=== PATIENT | female | born 1955 | race Caucasian/White ===

== ENCOUNTER 2018-12-08 15:56 | Emergency (ER) | payer BC, OTHER ==
[2018-12-08] MEDS ORDERED: ONDANSETRON 4 MG/2 ML VIAL ONE (16:52)
[2018-12-08] MEDS ORDERED: MORPHINE 2 MG/ML SYR ONE (16:52)
[2018-12-08] MEDS ORDERED: NA CHLORIDE 0.9% 500 ML ONE ×2 (16:52→18:22)
[2018-12-08] MEDS ORDERED: FAMOTIDINE 20 MG/2 ML VIAL IV ONE (16:53)
[2018-12-08 17:09] LABS: Urine Blood 1+ (NEG); Urine Glucose NEGATIVE (NEG); Urine Protein 1+ (NEG); Urine Specific Gravity 1.025 (1.005-1.030); Urine pH 6.5 (5.0-7.0)
[2018-12-08 17:36] LABS: Urine Bacteria <20 /HPF (<20); Urine Culture Reflex Order NOT NEEDED; Urine Mucus SLIGHT /HPF (NONE SEEN)
--- NOTE | 2018-12-08 17:40 | RAD REPORT ---
EXAM DESCRIPTION: CT - Stone Protocol - 12/08/2018 5:29 pm CLINICAL HISTORY: Flank pain. FLANK PAIN COMPARISON: No comparisons TECHNIQUE: Axial images were obtained without oral or IV contrast. Lack of contrast limits solid org an and vascular assessment. The [id number] spans the entirety of the system partially obscuring uppermost abdomen and lung bases. Coronal reformatted images were obtained and reviewed. All CT scans are performed using dose optimization technique as appropriate and may include automated exposure control or mA/KV adjustment according to patient size. FINDINGS: The lower lung del real are clear. Imaged portions of the liver and spleen show no suspicious findings on non-contrast imaging. The panc reas and adrenal glands are normal. No pathologic lymphadenopathy in the abdomen or pelvis. 2 mm stone is present at the left UVJ resulting in mild left hydronephrosis and hydroureter. No bowel obstruction, free air, free fluid or abscess. The appendix is dilated to 22 mm and filled wi th soft tissue material compatible with a mucocele. No significant bony abnormality. IMPRESSION: 2 mm stone left UVJ with mild left hydronephrosis. Mucocele of the appendix.
[2018-12-08 17:43] LABS: Basophils % 0.2 % (0-1.3); Hematocrit 35.1 % (36.0-45.0); Lymphocytes % 7.7 % (15.3-44.8); MPV 9.4 fL (7.6-11.3); RBC Red Blood Cell Count 3.84 M/uL (3.86-4.86)
[2018-12-08 17:47] LABS: Albumin 4.6 g/dL (3.4-5.0); Bilirubin Direct 0.2 mg/dL (0-0.2); Bilirubin Total 0.7 mg/dL (0.2-1.0); Magnesium 2.4 mg/dL (1.8-2.4); Protein, Total 7.7 g/dL (6.4-8.2)
[2018-12-08] MEDS ORDERED: MAGNESIUM SULFATE 1 gm IVPB 1 GM/100 ML BAG IV ONE (18:00)
[2018-12-08] MEDS ORDERED: KETOROLAC 30 MG/ML INJ ONE (18:00)
[2018-12-08] MEDS ORDERED: TAMSULOSIN 0.4 MG SR CAP ONE (18:22)
[2018-12-08] MEDS ORDERED: CEFTRIAXONE 1000 MG/VIAL ONE (18:22)
[2018-12-08 18:30] LABS: Blood Morphology Comment NOT SEEN (NOT SEEN); Platelet Estimate ADEQ; Urine White Blood Cell Casts OK
--- NOTE | 2018-12-08 18:41 | ER ---
Nurse's Notes [facility] Name: Tonya Thompson Age: 63 yrs Sex: Female : 1955 Arrival Date: 12/08/2018 Time: 15:57 Bed 6 Private MD: Fredo Gordon Diagnosis: Calculus of ureter-left Presentation: 12/08 16:03 Presenting complaint: Patient states: I am having a lot of pain in my left back that la1 radiates to the front and having a lot of vomiting, been going on since 0130 today. Transition of care: patient was not received from another setting of care. Onset of symptoms was December 08, 2018. Risk Assessment: Do you want to hurt yourself or someone else? Patient reports no desire to harm self or others. Initial Sepsis Screen: Does the patient meet any 2 criteria? No. Patient's initial sepsis screen is negative. Does the patient have a suspected source of infection? No. Patient's initial sepsis screen is negative. Care prior to arrival: None. 16:03 Method Of Arrival: Ambulatory la1 16:03 Acuity: BABAK 3 la1 Historical: - Allergies: 16:03 No Known Allergies; la1 - PMHx: 16:03 Hypertension; la1 - Immunization history:: Adult Immunizations up to date. - Social history:: Smoking status: Patient/guardian denies using tobacco. - Ebola Screening: : No symptoms or risks identified at this time. Screenin:54 Abuse screen: Denies threats or abuse. Denies injuries from another. Nutritional ch screening: No deficits noted. Tuberculosis screening: No symptoms or risk factors identified. Fall Risk None identified. Assessment: 16:50 General: Appears uncomfortable, Behavior is cooperative, appropriate for age, restless. ch Pain: Complains of pain in low back area Pain currently is 8 out of 10 on a pain scale. Pain began suddenly. 16:50 Neuro: No deficits noted. Level of Consciousness is awake, alert, obeys commands, ch Oriented to person, place, time, situation, Production Corrugator are equal bilaterally Moves all extremities. Full function Gait is steady. Respiratory: Airway is patent Respiratory effort is Respiratory pattern is Breath sounds are clear bilaterally. GI: Abdomen is round non-distended, Bowel sounds present X 4 quads. Derm: Skin is intact, Skin is pink, warm \T\ dry. 17:54 Reassessment: Patient appears in no apparent distress at this time. Patient and/or ch family updated on plan of care and expected duration. Pain level reassessed. Patient is alert, oriented x 3, equal unlabored respirations, skin warm/dry/pink. Patient states feeling better. Patient states symptoms have improved. 18:50 Reassessment: Patient appears in no apparent distress at this time. Patient and/or ch family updated on plan of care and expected duration. Pain level reassessed. Patient is alert, oriented x 3, equal unlabored respirations, skin warm/dry/pink. Patient states feeling better. Patient states symptoms have improved. Vital Signs: 16:04 BP 173 / 91; Pulse 113; Resp 18; Temp 98.6; Pulse Ox 100% on R/A; la1 17:15 BP 176 / 102; Pulse 110; Pulse Ox 100% on R/A; ch 18:00 BP 164 / 80; Pulse 94; Resp 16; Temp 97.8; Pulse Ox 99% on R/A; Pain 5/10; ch 18:52 BP 146 / 70; Pulse 100; Resp 14; Temp 98.9; Pulse Ox 99% on R/A; Pain 3/10; ch ED Course: 15:57 Patient arrived in ED. as 15:58 Fredo Gordon MD is Private Physician. as 16:04 Triage completed. la1 16:04 Arm band placed on left wrist. la1 16:06 Srinivasan Lafleur PA is PHCP. cp 16:06 Artemio Melendez MD is Attending Physician. cp 16:08 Lauren Montelongo RN is Primary Nurse. jl7 16:29 Hiedi Sanchez, CHAPO is Primary Nurse. ch 16:45 Missed attempt(s): 22 gauge 24 gauge in right hand. antecubital area. Bleeding ch controlled, band aid applied, catheter tip intact. 17:15 Inserted saline lock: 22 gauge in right antecubital area, using aseptic technique. iw 17:31 CT Stone Protocol In Process Unspecified. EDMS 17:54 Patient has correct armband on for positive identification. Bed in low position. Call light in reach. Side rails up X 1. Adult w/ patient. Pulse ox on. NIBP on. Warm blanket given. 17:54 No provider procedures requiring assistance completed. ch 18:39 Wellington Lawton MD is Referral Physician. cp 18:50 IV discontinued, intact, bleeding controlled, No redness/swelling at site. Pressure ch dressing applied. 18:54 No apparent distress. Resting quietly. ch Administered Medications: 17:15 Drug: Zofran 4 mg Route: IVP; Site: right antecubital; iw 18:08 Follow up: Response: No adverse reaction ch 17:18 Drug: Pepcid 20 mg Route: IVP; Site: right antecubital; iw 18:07 Follow up: Response: No adverse reaction ch 17:20 Drug: morphine 2 mg Route: IVP; Site: right antecubital; iw 18:08 Follow up: Response: No adverse reaction ch 17:45 Drug: NS 0.9% 500 ml Route: IV; Rate: bolus; Site: right antecubital; ch 18:09 Follow up: IV Status: Completed infusion; IV Intake: 500ml ch 18:06 Drug: TORadol - Ketorolac 15 mg Route: IVP; Site: right antecubital; ch 18:51 Follow up: Response: No adverse reaction; Marked relief of symptoms ch 18:07 Drug: Magnesium Sulfate 1 grams Route: IVPB; Infused Over: 1 hrs; Site: right ch antecubital; 19:05 Follow up: IV Status: Completed infusion; IV Intake: 100ml ch 18:20 Drug: Flomax 0.4 mg Route: PO; ch 18:52 Follow up: Response: No adverse reaction; Marked relief of symptoms ch 18:20 Drug: NS 0.9% 1000 ml Route: IV; Rate: 125 ml/hr; Site: right antecubital; ch 19:11 Follow up: IV Status: Completed infusion; IV Intake: 125ml ch 18:20 Drug: Rocephin - (cefTRIAXone) 1 grams Route: IVPB; Infused Over: 30 mins; Site: right ch antecubital; 18:52 Follow up: IV Status: Completed infusion ch Intake: 18:09 IV: 500ml; Total: 500ml. ch 19:05 IV: 100ml; Total: 600ml. ch 19:11 IV: 125ml; Total: 725ml. ch Outcome: 18:40 Discharge ordered by . cp 19:05 Discharged to home ambulatory, with family. ch 19:05 Condition: improved 19:05 Discharge instructions given to patient, family, Instructed on discharge instructions, follow up and referral plans. medication usage, Demonstrated understanding of instructions, follow-up care, medications, Prescriptions given X 4. 19:08 Patient left the ED. rr5 Signatures: Dispatcher [employer] EDMS Heidi Sanchez, RN RN Fara Quintana Irene, RN RN iw Randy Thompson RN RN la1 Srinivasan Lafleur PA PA cp Leal, Jahala, RN RN jl7 Reagan Calzada RN RN rr5
--- NOTE | 2018-12-08 18:42 | EDPHYS ---
Physician Documentation [facility] Name: Tonya Thompson Age: 63 yrs Sex: Female : 1955 Arrival Date: 12/08/2018 Time: 15:57 Bed 6 Private MD: Fredo Gordon ED Physician Artemio Melendez HPI: 12/08 16:50 This 63 yrs old Female presents to ER via Ambulatory with complaints of Back cp Pain, Abdominal Pain, Vomiting. 16:50 The patient presents with pain that is acute, with no known mechanism of injury. The cp symptoms are located in the left flank. Onset: The symptoms/episode began/occurred suddenly, this morning, awoke patient from sleep. The pain radiates to the left side of abdomen. Associated signs and symptoms: Pertinent positives: nausea, vomiting, Pertinent negatives: chest pain, constipation, dysuria, fever, headache, incontinence, numbness, urinary retention, weakness. The problem was sustained from unknown cause. The patient has not experienced similar symptoms in the past. Historical: - Allergies: 16:03 No Known Allergies; la1 - PMHx: 16:03 Hypertension; la1 - Immunization history:: Adult Immunizations up to date. - Social history:: Smoking status: Patient/guardian denies using tobacco. - Ebola Screening: : No symptoms or risks identified at this time. ROS: 17:00 Constitutional: Negative for body aches, chills, fever, poor PO intake. cp 17:00 Eyes: Negative for injury, pain, redness, and discharge. cp 17:00 ENT: Negative for drainage from ear(s), ear pain, sore throat, difficulty swallowing, difficulty handling secretions. 17:00 Cardiovascular: Negative for chest pain, palpitations. 17:00 Respiratory: Negative for cough, shortness of breath, wheezing. 17:00 Abdomen/GI: Positive for abdominal pain, nausea, vomiting, Negative for diarrhea, constipation, anorexia, black/tarry stool, rectal bleeding. 17:00 Back: Positive for flank pain, on the left. 17:00 : Negative for urinary symptoms. 17:00 Skin: Negative for rash. 17:00 Neuro: Negative for altered mental status, headache, weakness. 17:00 All other systems are negative. Exam: 17:05 Constitutional: The patient appears in no acute distress, alert, awake, cp non-diaphoretic, non-toxic, well developed, well nourished, uncomfortable. 17:05 Head/Face: Normocephalic, atraumatic. cp 17:05 Eyes: Periorbital structures: appear normal, Conjunctiva: normal, no exudate, no injection, Sclera: no appreciated abnormality, Lids and lashes: appear normal, bilaterally. 17:05 ENT: External ear(s): are unremarkable, Nose: is normal, Mouth: Lips: moist, Oral mucosa: pink and intact, moist, Posterior pharynx: is normal, airway is patent, no erythema, no exudate. 17:05 Neck: ROM/movement: is normal, is supple, without pain, no range of motions limitations, no nuchal rigidity. 17:05 Chest/axilla: Inspection: normal, Palpation: is normal, no crepitus, no tenderness. 17:05 Cardiovascular: Rate: tachycardic, Rhythm: regular, Edema: is not appreciated, JVD: is not appreciated. 17:05 Respiratory: the patient does not display signs of respiratory distress, Respirations: normal, no use of accessory muscles, no retractions, no splinting, no tachypnea, labored breathing, is not present, Breath sounds: are clear throughout, no decreased breath sounds, no stridor, no wheezing. 17:05 Abdomen/GI: Inspection: abdomen appears normal, Bowel sounds: active, all quadrants, Palpation: soft, in all quadrants, moderate abdominal tenderness, in the anterior aspect of left lateral abdomen, voluntary guarding, is not appreciated. 17:05 Back: CVA tenderness, is noted on the left. 17:05 Skin: no rash present. 17:05 Neuro: Orientation: to person, place \T\ time. Mentation: is normal, Motor: moves all fours, strength is normal, Sensation: no obvious gross deficits. Vital Signs: 16:04 BP 173 / 91; Pulse 113; Resp 18; Temp 98.6; Pulse Ox 100% on R/A; la1 17:15 BP 176 / 102; Pulse 110; Pulse Ox 100% on R/A; ch 18:00 BP 164 / 80; Pulse 94; Resp 16; Temp 97.8; Pulse Ox 99% on R/A; Pain 5/10; ch 18:52 BP 146 / 70; Pulse 100; Resp 14; Temp 98.9; Pulse Ox 99% on R/A; Pain 3/10; ch MDM: 16:38 Patient medically screened. cp 17:00 Differential diagnosis: Cholelithiasis chronic back pain, Pyelonephritis ruptured disc, cp Ureterolithiasis UTI, diverticulitis. 18:40 Data reviewed: vital signs, nurses notes, lab test result(s), radiologic studies, CT cp scan. 18:40 Counseling: I had a detailed discussion with the patient and/or guardian regarding: the cp historical points, exam findings, and any diagnostic results supporting the discharge/admit diagnosis, lab results, radiology results, to return to the emergency department if symptoms worsen or persist or if there are any questions or concerns that arise at home. Response to treatment: the patient's symptoms have markedly improved after treatment, and as a result, I will discharge patient. ED course: VSS. Pain markedly improved. Will discharge to home for continued monitoring. 12/08 16:39 Order name: Basic Metabolic Panel; Complete Time: 17:58 cp 12/08 16:39 Order name: CBC with Diff; Complete Time: 18:38 cp 12/08 16:39 Order name: Creatinine for Radiology; Complete Time: 17:58 cp 12/08 16:39 Order name: Hepatic Function; Complete Time: 17:58 cp 12/08 16:39 Order name: Lipase; Complete Time: 17:58 cp 12/08 16:39 Order name: Urine Microscopic Only; Complete Time: 17:58 cp 12/08 16:39 Order name: Magnesium; Complete Time: 17:58 cp 12/08 16:44 Order name: Urine Dipstick--Ancillary (enter results); Complete Time: 17:58 em1 12/08 16:55 Order name: CT Stone Protocol; Complete Time: 17:58 cp 12/08 18:31 Order name: CBC Smear Scan; Complete Time: 18:38 EDMS 12/08 16:39 Order name: IV Saline Lock; Complete Time: 18:08 cp 12/08 16:39 Order name: Labs collected and sent; Complete Time: 18:08 cp 12/08 16:39 Order name: Urine Dipstick-Ancillary (obtain specimen); Complete Time: 16:41 cp 12/08 18:43 Order name: Urine Strainer; Complete Time: 18:51 cp Administered Medications: 17:15 Drug: Zofran 4 mg Route: IVP; Site: right antecubital; iw 18:08 Follow up: Response: No adverse reaction ch 17:18 Drug: Pepcid 20 mg Route: IVP; Site: right antecubital; iw 18:07 Follow up: Response: No adverse reaction ch 17:20 Drug: morphine 2 mg Route: IVP; Site: right antecubital; iw 18:08 Follow up: Response: No adverse reaction ch 17:45 Drug: NS 0.9% 500 ml Route: IV; Rate: bolus; Site: right antecubital; ch 18:09 Follow up: IV Status: Completed infusion; IV Intake: 500ml ch 18:06 Drug: TORadol - Ketorolac 15 mg Route: IVP; Site: right antecubital; ch 18:51 Follow up: Response: No adverse reaction; Marked relief of symptoms ch 18:07 Drug: Magnesium Sulfate 1 grams Route: IVPB; Infused Over: 1 hrs; Site: right antecubital; 19:05 Follow up: IV Status: Completed infusion; IV Intake: 100ml ch 18:20 Drug: Flomax 0.4 mg Route: PO; ch 18:52 Follow up: Response: No adverse reaction; Marked relief of symptoms ch 18:20 Drug: NS 0.9% 1000 ml Route: IV; Rate: 125 ml/hr; Site: right antecubital; ch 19:11 Follow up: IV Status: Completed infusion; IV Intake: 125ml ch 18:20 Drug: Rocephin - (cefTRIAXone) 1 grams Route: IVPB; Infused Over: 30 mins; Site: right antecubital; 18:52 Follow up: IV Status: Completed infusion Disposition: 12/08/18 18:40 Discharged to Home. Impression: Calculus of ureter - left. - Condition is Stable. - Discharge Instructions: Kidney Stones, Dietary Guidelines to Help Prevent Kidney Stones. - Prescriptions for Flomax 0.4 mg Oral Capsule, Sust. Release 24 hr - take 1 capsule by ORAL route once daily As needed 1/2 hour following the same meal each day; 5 capsule. Keflex 500 mg Oral Capsule - take 1 capsule by ORAL route every 8 hours for 7 days; 21 capsule. Tylenol- Codeine #3 300-30 mg Oral Tablet - take 2 tablets by ORAL route every 6 hours As needed; 20 tablet. Zofran 4 mg Oral Tablet - take 1 tablet by ORAL route every 12 hours As needed; 20 tablet. - Medication Reconciliation Form, Thank You Letter, Antibiotic Education, Prescription Opioid Use form. - Follow up: Wellington Lawton MD; When: 1 - 2 days; Reason: pain continues. - Problem is new. - Symptoms have improved. Addendum: 12/11/2018 00:42 Co-signature as Attending Physician, Artemio Melendez MD. r n Signatures: Dispatcher [employer] EDMS Heidi Sanchez RN RN Jerrica Cantu RN RN Artemio Melendez MD MD rn Attema, Lee RN RN la1 Srinivasan Lafleur PA PA cp Roque, Raymond RN RN rr5 Corrections: (The following items were deleted from the chart) 12/08 19:08 18:40 12/08/2018 18:40 Discharged to Home. Impression: Calculus of ureter - left. rr5 Condition is Stable. Forms are Medication Reconciliation Form, Thank You Letter, Antibiotic Education, Prescription Opioid Use. Follow up: Wellington Lawton; When: 1 - 2 days; Reason: pain continues. Problem is new. Symptoms have improved. cp
[2018-12-08 22:09] VITALS: O2SAT 99
[2018-12-08 22:10] VITALS: BP 146/70; TEMP 98.9
== END 2018-12-08 19:08 | disposition home or self-care (01) ==
LOC: ER 15:56
DX: N20.1 Calculus of ureter (principal)
CPT/HCPCS: 96365; 96368; 85025; 80048; 36415; 83735; 80076; 83690; 76377; 74176; 96375; 99284; J3475; J2270; J7040 ×2; J2405; 81003; 81015